=== PATIENT | male | born 1975 | race Caucasian/White ===

== ENCOUNTER 2018-07-03 15:47 | Emergency (ER) | payer SELFPAY ==
[~2018-07-03] VITALS: Ht 172.7 cm; Wt 106.6 kg
--- OUTSIDE RECORDS SUMMARY | 2018-07-03 15:49 | XMS REPORT | Clinical Summary ---
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 Name Role Phone Asked, No Pcp PCP Unavailable Allergies No Known Allergies Medications No known medications Active Problems Problem Noted Date Cocaine abuse 04/12/2018 Encounters Care Team Description Date Type Specialty Leon Fair MD Bavare, Arusha Amod, MD Cocaine abuse (HCC) (Primary Dx); Chest pain, unspecified type; Anxiety reaction; Withdrawal from other stimulant drug (HCC) 04/12/2018 Emergency General Internal Medicine after 07/02/2017 Social History Date Tobacco Use Types Packs/Day Years Used Never Smoker Smokeless Tobacco: Never Used Alcohol Use Drinks/Week oz/Week Comments Yes Alcohol Habits Answer Date Recorded How often do you have a drink containing alcohol? Never 04/12/2018 How many drinks containing alcohol do you have on Not asked a typical day when you are drinking? How often do you have six or more drinks on one Not asked occasion? Sex Assigned at Date Recorded Not on file Industry Job Start Date Occupation Not on file Not on file Not on file Travel End Travel History Travel Start No recent travel history available. Last Filed Vital Signs Time Taken Vital Sign Reading 04/12/2018 2:31 PM [employer]ORY AND [employer]ICING ASSOCI[employer] Blood Pressure 104/61 04/12/2018 2:31 PM [employer]ORY AND PRICING ASSOCIATE Pulse 80 04/12/2018 2:31 PM [employer]ORY AND PRICING ASSOCIATE Temperature 36.8 C (98.2 F) 04/12/2018 2:31 PM [employer]ORY AND PRICING ASSOCIATE Respiratory Rate 17 04/12/2018 2:31 PM INVENTORY AND PRICING ASSOCIATE Oxygen Saturation 94% - Inhaled Oxygen - Concentration 04/12/2018 4:59 AM IN[employer]ORY AND PRICING ASSOCIATE Weight 103 kg (226 lb 10.1 oz) 04/12/2018 4:59 AM IN[employer]ORY AND PRICING ASSOCIATE Height 172.7 cm (5' 8") 04/12/2018 4:59 AM IN[employer]ORY AND PRICING ASSOCIATE Body Mass Index 34.46 Plan of Treatment Health Maintenance Due Date Last Done Comments INFLUENZA VACCINE 10/08/2018 Procedures Comments Procedure Name Priority Date/Time Associated Diagnosis ECG 12-LEAD STAT 04/12/2018 2:25 PM IN[employer]ORY AND PRICING ASSOCIATE TROPONIN Timed 04/12/2018 10:45 AM IN[employer]ORY AND PRICING ASSOCIATE TROPONIN Timed 04/12/2018 7:11 AM INVENTORY AND PRICING ASSOCIATE URINE DRUGS OF ABUSE STAT 04/12/2018 SCREEN 3:57 AM INVENTORY AND PRICING ASSOCIATE XR CHEST 1 VW PORTABLE STAT 04/12/2018 2:26 AM INVENTORY AND PRICING ASSOCIATE CREATINE KINASE, TOTAL STAT 04/12/2018 (CPK) 1:18 AM INVENTORY AND PRICING ASSOCIATE ESTIMATED GFR STAT 04/12/2018 1:18 AM INVENTORY AND PRICING ASSOCIATE B NATRIURETIC PEPTIDE STAT 04/12/2018 1:18 AM INVENTORY AND PRICING ASSOCIATE TROPONIN STAT 04/12/2018 1:18 AM INVENTORY AND PRICING ASSOCIATE COMPREHENSIVE METABOLIC STAT 04/12/2018 PANEL 1:18 AM INVENTORY AND PRICING ASSOCIATE HC COMPLETE BLD COUNT STAT 04/12/2018 W/AUTO DIFF 1:18 AM INVENTORY AND PRICING ASSOCIATE ECG ED PRELIMINARY Routine 04/12/2018 INTERPRETATION 1:07 AM IN[employer]ORY AND PRICING ASSOCIATE ECG 12-LEAD STAT 04/12/2018 1:01 AM IN[employer]ORY AND PRICING ASSOCIATE after 07/02/2017 Results * ECG 12 lead (04/12/2018 2:25 PM INVENTORY AND PRICING ASSOCIATE) Only the most recent of 2 results within the time period is included. Ventricular rate 74 [facility] Atrial rate 74 [facility] NE interval 146 [facility] QRSD interval 82 [facility] QT interval 362 [facility] QTC interval 401 [facility] P axis 1 27 [facility] QRS axis 1 37 [facility] T wave axis 38 [facility] EKG impression Normal sinus rhythm-Normal [facility] ECG-In automated comparison with ECG of 12-APR-2018 01:01,-Vent. rate has decreased BY 40 BPM- Narrative Performed At Performing Organization Address City/[facility]/Zipcode Phone Number [facility] [address] [place] [address] * Troponin (04/12/2018 10:45 AM INVENTORY AND PRICING ASSOCIATE) Only the most recent of 3 results within the time period is included. Troponin <0.30 0.00 - 0.30 ng/mL [facility] Comment: [facility] 0.11 - 1.49 ng/mlMay indicate increased risk of acute coronary syndrome. >=1.5 ng/ml Consistent with acute myocardial infarction. The diagnostic value of a single normal or non-diagnostic result is questionable.Serial samples at 2-6 hour intervals are required to rule out acute myocardial injury. Specimen Plasma specimen Performing Organization Address [facility] [place] [address] PATHOLOGY AND GENOMIC MEDICINE [address] * Urine drugs of abuse screen (04/12/2018 3:57 AM INVENTORY AND PRICING ASSOCIATE) Amphetamine screen, urine Positive (A) [facility] Barbiturate screen, urine Negative [facility] Benzodiazepine screen, Negative [facility] urine [facility] Cannabinoid screen, urine Negative [facility] Cocaine screen, urine Positive (A) [facility] Methadone metabolite Negative [facility] (EDDP), urine [facility] Opiates screen, urine Negative [facility] Phencyclidine screen, Negative [facility] urine [facility] Specimen Urine Performing Organization Address [facility] [place] [address] PATHOLOGY AND GENOMIC MEDICINE [address] * XR Chest 1 Vw Portable (04/12/2018 2:26 AM INVENTORY AND PRICING ASSOCIATE) Narrative Performed At EXAMINATION: XR CHEST 1 VW PORTABLE [facility] CLINICAL HISTORY: cp COMPARISON:None. IMPRESSION: The lungs are clear. No pleural effusion or pneumothorax. The cardiomediastinal silhouette is normal. No acute osseous abnormalities. [facility]-[id number] Procedure Note Hm Interface, Radiology Results Incoming - 04/12/2018 2:31 AM INVENTORY AND PRICING ASSOCIATE EXAMINATION: XR CHEST 1 VW PORTABLE CLINICAL HISTORY: cp COMPARISON: None. IMPRESSION: The lungs are clear. No pleural effusion or pneumothorax. The cardiomediastinal silhouette is normal. No acute osseous abnormalities. [facility]-[id number] Performing Organization Address City/[facility]/Zipcode Phone Number [facility] [address] [place] [address] * Estimated GFR (04/12/2018 1:18 AM INVENTORY AND PRICING ASSOCIATE) Estimated GFR >=90 mL/min/1.73 m2 [facility] Comment: [facility] CatergoryUnitsInte rpretation G1 >=90 Normal or high G2 60-89Mildly decreased [id number] Mildly to moderately decreased [id number] Moderately to severely decreased G4 15-29Severely decreased G5 <15Kidney failure The eGFR was calculated using the Chronic Kidney Disease Epidemiology Collaboration (CKD-EPI) equation. Interpretation is based on recommendations of the National Kidney Foundation-Kidney Disease Outcomes Quality Initiative (NKF-KDOQI) published in 2014. Specimen Plasma specimen Performing Organization Address City/[facility] Phone Number [facility] OF [address] [place] [address] PATHOLOGY AND GENOMIC MEDICINE [place] [address] [address] * CBC with platelet and differential (04/12/2018 1:18 AM INVENTORY AND PRICING ASSOCIATE) WBC 10.2 4.2 - 11.0 k/uL [facility] RBC 5.76 4.04 - 5.86 m/uL [facility] HGB 16.3 13.0 - 17.3 g/dL [facility] HCT 48.9 (H) 34.0 - 45.0 % [facility] MCV 84.9 80.0 - 98.0 fL [facility] MCH 28.3 27.0 - 34.0 pg [facility] MCHC 33.3 31.5 - 36.5 g/dL [facility] RDW - SD 41.6 37.0 - 51.0 fL [facility] MPV 10.7 (H) 7.4 - 10.4 fL [facility] Platelet count 305 150 - 400 k/uL [facility] Nucleated RBC 0.00 /100 WBC [facility] Neutrophils 69.1 (H) 36.0 - 66.0 % [facility] Lymphocytes 19.2 (L) 24.0 - 44.0 % [facility] Monocytes 10.2 (H) 0.0 - 6.0 % [facility] Eosinophils 0.4 0.0 - 6.0 % [facility] Basophils 0.6 0.0 - 1.2 % [facility] Immature granulocytes 0.5 0.0 - 1.0 % [facility] Specimen Blood Performing Organization Address City/[facility] Phone Number [facility] [place] [place] [address] PATHOLOGY AND GENOMIC MEDICINE [address] * B natriuretic peptide (04/12/2018 1:18 AM INVENTORY AND PRICING ASSOCIATE) BNP 8 0 - 100 pg/mL [facility] Specimen Blood Performing Organization Address [facility] Phone Number [facility] [place] [place] [address] PATHOLOGY AND GENOMIC MEDICINE [address] * Creatine kinase, total (CPK) (04/12/2018 1:18 AM INVENTORY AND PRICING ASSOCIATE) Creatine kinase 220 39 - 308 U/L [facility] Specimen Plasma specimen Performing Organization Address City/[facility] Phone Number [facility] [place] [place] [address] PATHOLOGY AND GENOMIC MEDICINE [address] * Comprehensive metabolic panel (04/12/2018 1:18 AM INVENTORY AND PRICING ASSOCIATE) Sodium 137 135 - 150 mEq/L [facility] Potassium 3.8 3.5 - 5.0 mEq/L [facility] Chloride 98 98 - 112 mEq/L [facility] CO2 25 24 - 31 mmol/L [facility] Anion gap 14@ANIO 7 - 15 mEq/L [facility] BUN 7 7 - 18 mg/dL [facility] Creatinine 1.00 0.70 - 1.20 mg/dL [facility] Glucose 144 (H) 65 - 100 mg/dL [facility] Calcium 10.1 8.3 - 10.2 mg/dL [facility] Protein 8.0 6.3 - 8.3 g/dL [facility] Albumin 4.3 3.5 - 5.0 g/dL [facility] A/G ratio 1.2 0.7 - 3.8 [facility] Alkaline phosphatase 64 0 - 129 U/L [facility] AST 27 10 - 50 U/L [facility] ALT 31 5 - 50 U/L [facility] Total bilirubin 0.7 0.2 - 1.2 mg/dL [facility] Specimen Plasma specimen Performing Organization Address City/State/Zipcode Phone Number [facility] [place] [facility] [address] [place] [address] PATHOLOGY AND GENOMIC MEDICINE [place] [id number] [address] * ECG ED Preliminary Interpretation - Not an Order (04/12/2018 1:07 AM INVENTORY AND PRICING ASSOCIATE) Narrative Performed At Leon Fair MD 04/12/20188:52 PM ECG ED Preliminary Interpretation - Not an Order Performed by: Leon Fair MD Authorized by: Leon Fair MD ECG reviewed by ED Physician in the absence of a talent development specialist: yes Interpretation: Interpretation: normal Rate: ECG rate:114 ECG rate assessment: tachycardic Rhythm: Rhythm: sinus rhythm and sinus tachycardia Ectopy: Ectopy: none QRS: QRS axis:Normal QRS intervals:Normal Conduction: Conduction: normal ST segments: ST segments:Normal T waves: T waves: flattening and inverted Flattening:AVF Inverted:III after 07/02/2017 Insurance Payer Benefit Subscriber ID Type Phone Address Plan / Group [facility] xxxxxxxxx HMO/PPO THCARE CHOICE/CHO ICE + Advance Directives Patient has advance care planning documents on file. For more information, josefina to contact: Frank Pittman [address] [place] [address]
--- OUTSIDE RECORDS SUMMARY | 2018-07-03 15:50 | XMS REPORT ---
Author Author Admin, [place] Organization [facility] Address [address] [place] [address] Phone Allergies, Adverse Reactions, Alerts Allergy Name Reaction Description Start Date Severity Status Provider Allergies Unknown Conditions or Problems Problem Name Problem Code Onset Date Status Entry Date Provider Comment Standard Description Annotate Problems Unknown Medication List Medication Instructions Start Date Stop Date Generic Name NDC Status Provider Patient Instruction Drug Treatment Unknown - unknown
--- NOTE | 2018-07-03 16:00 | NUR ---
ASSESSMENT WAS COMPLETED AT THIS TIME, AFTER TRIAGE, BUT DOCUMENTED LATE.
[2018-07-03] MEDS ORDERED: SODIUM CHLORIDE 0.9% 1000ML 1,000 ML IV STA (16:16)
--- NOTE | 2018-07-03 16:20 | NUR ---
DR. ARIZA AT BEDSIDE AT THIS TIME FOR PT EVAL.
[2018-07-03] MEDS ORDERED: MAGNESIUM/ALUMINUM/SIMETHICONE 30 ML UDC PO ONE (16:30)
[2018-07-03] MEDS ORDERED: LORAZEPAM INJ 2 MG/ML VIAL IV ONE (16:30)
[2018-07-03] MEDS ORDERED: BELLADONNA ALK/PHENOBARBITAL 5 ML UDC PO ONE (16:30)
[2018-07-03] MEDS ORDERED: LIDOCAINE VISC 2% SOLN 15 ML UDC PO ONE (16:30)
--- NOTE | 2018-07-03 17:00 | NUR ---
RADIOLOGY AT BEDSIDE AT THIS TIME FOR CXR.
--- NOTE | 2018-07-03 17:06 | Diagnostic Imaging Report ---
Examination: Single AP view of the chest. COMPARISON: None. INDICATION: Chest pain DISCUSSION: Lines/tubes: None. Lungs: The lungs are well inflated and clear. No pneumonia or pulmonary edema. Pleura: No pleural effusion or pneumothorax. Heart and mediastinum: The heart and the mediastinum are unremarkable. Bones and soft tissues: No acute bony abnormalities. IMPRESSION: 1. No acute cardiopulmonary abnormalities. Signed by: Dr. Flaco Cameron M.D. on 07/03/2018 5:03 PM
[2018-07-03 17:44] LABS: BASOPHILS # (AUTO) 0.1 (0.0-0.1); BASOPHILS % 0.9 % (0.0-1.0); EOSINOPHILS # (AUTO) 0.2 (0.0-0.4); EOSINOPHILS % 1.3 % (0.0-6.0); HEMOGLOBIN 16.1 g/dL (14.0-18.0); LYMPHOCYTES # (AUTO) 1.8 (1.0-3.2); LYMPHOCYTES % 15.5 % (18.0-39.1); MEAN CORPUSCULAR HEMOGLOBIN 28.4 pg (28-32); MEAN CORPUSCULAR HGB CONC 33.5 g/dL (31-35); MEAN CORPUSCULAR VOLUME 84.8 fL (81-99); MONOCYTES # (AUTO) 1.2 (0.2-0.8); MONOCYTES % 10.5 % (4.4-11.3); NEUTROPHILS # (AUTO) 8.3 (2.1-6.9); NEUTROPHILS % 71.5 % (38.7-80.0); PLATELET COUNT 326 x10e3/uL (140-360); RED BLOOD COUNT 5.66 x10e6/uL (4.3-5.7)
[2018-07-03 17:54] LABS: INR 0.82; PROTHROMBIN TIME 11.8 seconds (11.9-14.5)
[2018-07-03 18:00] LABS: ALANINE AMINOTRANSFERASE 29 IU/L (0-55); ALBUMIN/GLOBULIN RATIO 1.1 (0.8-2.0); ALKALINE PHOSPHATASE 67 IU/L (40-150); ANION GAP 16.4 mmol/L (8-16); BLOOD UREA NITROGEN 13 mg/dL (7-26); BUN/CREATININE RATIO 12 (6-25); CALCIUM 10.5 mg/dL (8.4-10.2); CARBON DIOXIDE 23 mmol/L (22-29); CHLORIDE 104 mmol/L (98-107); CREATINE KINASE 197 IU/L (30-200); CREATININE, SERUM 1.12 mg/dL (0.72-1.25); EST GLOMERULAR FILTRATION RATE > 60 ML/MIN (60-); GLUCOSE 117 mg/dL (74-118); MAGNESIUM 2.3 MG/DL (1.3-2.1); POTASSIUM 4.4 mmol/L (3.5-5.1); SODIUM 139 mmol/L (136-145)
[2018-07-03 18:05] LABS: AMPHETAMINES SCREEN,URINE NEGATIVE (NEGATIVE); BENZODIAZEPINES SCREEN,URINE NEGATIVE (NEGATIVE); BILIRUBIN,URINE NEGATIVE (NEGATIVE); CLARITY,URINE HAZY (CLEAR); COLOR,URINE YELLOW (YELLOW); KETONES,URINE NEGATIVE (NEGATIVE); LEUKOCYTE ESTERASE ,URINE NEGATIVE (NEGATIVE); NITRITE,URINE NEGATIVE (NEGATIVE); PHENCYCLIDINE SCREEN,URINE NEGATIVE (NEGATIVE); PROTEIN,URINE DIPSTICK NEGATIVE (NEGATIVE); URINE UROBILINOGEN 1 mg/dL (0.2 - 1)
[2018-07-03 18:14] LABS: BACTERIA,URINE FEW /HPF; EPITHELIAL CELLS,URINE FEW /LPF; WBC,URINE (MAN) 0-5 /HPF (0-5)
[2018-07-03 18:15] LABS: HYALINE CASTS 0-1 (0-1); MUCUS,URINE MODERATE (RARE)
[2018-07-03 18:54] VITALS: BP 134/75
== END 2018-07-03 19:10 | disposition home or self-care (01) ==
LOC: ER 15:47
DX: R07.2 Precordial pain (principal); F14.180 Cocaine abuse with cocaine-induced anxiety disorder; K21.9 Gastro-esophageal reflux disease without esophagitis; F17.210 Nicotine dependence, cigarettes, uncomplicated
CPT/HCPCS: 36415; 71045; 80053; 80307; 81001; 82550; 82553; 83735; 84484; 85025; 85610; 85730; 93005; 99284; J2060; J7030